=== PATIENT | male | born 1955 | race Caucasian/White ===

== ENCOUNTER → 2016-09-06 | Outpatient (CLI) | payer OTHER ==
[~2016-09-06] MED LIST: GLUCOPHAGE500 MG PO; HALFPRIN81 MG PO; INVOKANA100 MG PO; LEVEMIR FL100 UNIT/1 SUBCUT; LIPITOR80 MG PO; LOPRESSOR25 MG PO; NEURONTIN300 MG PO; PLAVIX75 MG PO; PRINIVIL5 MG PO
== END | disposition short-term general hospital (02) ==
LOC: CLVASC 12:31
DX: L97.519 Non-pressure chronic ulcer of other part of right foot with unspecified severity (principal)

== ENCOUNTER → 2016-10-11 | Outpatient (CLI) | payer OTHER | END | disposition short-term general hospital (02) | LOC: CLVASC 12:18 | DX: E11.621 Type 2 diabetes mellitus with foot ulcer (principal); L97.519 Non-pressure chronic ulcer of other part of right foot with unspecified severity; Z89.421 Acquired absence of other right toe(s) ==

== ENCOUNTER → 2016-10-25 | Outpatient (CLI) | payer OTHER | END | disposition short-term general hospital (02) | LOC: CLVASC 13:08 | DX: L97.519 Non-pressure chronic ulcer of other part of right foot with unspecified severity (principal); Z89.421 Acquired absence of other right toe(s) ==

== ENCOUNTER → 2016-11-08 | Outpatient (CLI) | payer OTHER | END | disposition short-term general hospital (02) | LOC: CLVASC 04:16 | DX: L97.919 Non-pressure chronic ulcer of unspecified part of right lower leg with unspecified severity (principal); Z89.421 Acquired absence of other right toe(s) ==

== ENCOUNTER → 2016-11-22 | Outpatient (CLI) | payer OTHER | END | disposition short-term general hospital (02) | LOC: CLVASC 01:33 | DX: E11.621 Type 2 diabetes mellitus with foot ulcer (principal); L97.519 Non-pressure chronic ulcer of other part of right foot with unspecified severity; Z89.421 Acquired absence of other right toe(s) ==

== ENCOUNTER → 2016-12-06 | Outpatient (CLI) | payer OTHER | END | disposition short-term general hospital (02) | LOC: CLVASC 12:33 | DX: L97.519 Non-pressure chronic ulcer of other part of right foot with unspecified severity (principal); Z89.421 Acquired absence of other right toe(s) ==